=== PATIENT | female | born 1990 | race Two or more races ===

== ENCOUNTER 2018-11-12 21:32 | Emergency (ER) | payer SELFPAY ==
[~2018-11-12] VITALS: Ht 167.6 cm; Wt 65.8 kg
[2018-11-12 22:04] VITALS: BP 128/78
--- NOTE | 2018-11-12 22:54 | NUR ---
PT CALLED BY NORA ALEJANDRO FOR EVAL, PT LEFT WITHOUT BEING SEEN.
== END 2018-11-13 01:10 | disposition home or self-care (01) ==
LOC: ER 21:43
DX: Z53.21 Procedure and treatment not carried out due to patient leaving prior to being seen by health care provider (principal); R51 Headache